=== PATIENT | male | born 1990 | race Caucasian/White ===

== ENCOUNTER 2023-03-19 13:09 | Emergency (ER) | payer OTHER, SELFPAY ==
[2023-03-19 13:14] VITALS: BP 138/96; PULSE 81; RESP 16; TEMP 36.9; O2SAT 98
--- NOTE | 2023-03-19 13:39 | W.ED.GENAD ---
Discharge Plan Disposition Patient Disposition: Home Condition: Stable Discharge Details Clinical Impression: Cellulitis of forearm, right Primary Care Provider: Kary Conde ED Provider: César Anne Home Meds and New Rx's Prescriptions: New cephalexin 500 mg tablet 500 mg PO QID Qty: 20 0RF Discharge Instructions Instructions: Cellulitis (ED) Additional Instructions: Please take full course of antibiotic as prescribed. Please contact your primary care physician to arrange follow-up. Return to the ER immediately for any worsening or new concerning symptoms. Referrals: Kary Conde, AMA [Primary Care Provider] - Medical Decision Making 32-year-old male here with cellulitis of wound right arm. No signs of systemic illness. No prior history of or risk factors for MRSA. Plan to treat with Keflex. Tetanus booster was given 2018. HPI General Mode of arrival: ambulatory. Date/Time Provider Initiated Documentation: 03/19/23 13:35. Limitations to Documentation: no limitations. Information obtained by: patient. HPI Narrative: 32-year-old male here with concern for infection of his right forearm. Patient notes he scraped the scab off of his right forearm. He is unsure as to etiology of original wound but may have been bug bite. He states this morning he noticed forearm seem swollen and tight with redness around the wound. No associated fever. No prior skin infections. Related Data Home Medications Medication Instructions Recorded Confirmed cephalexin 500 mg tablet 500 mg PO QID #20 tabs 03/19/23 Previous Rx's Medication Instructions Recorded cephalexin 500 mg tablet 500 mg PO QID #20 tabs 03/19/23 Allergies Allergy/AdvReac Type Severity Reaction Status Date / Time No Known Allergies Allergy Verified 03/19/23 13:16 General Stated Complaint: Cellulitis NESSA: 4 Review of Systems Constitutional Constitutional: Denies fever(s) Integumentary/Breasts Skin/Breast: Reports as per HPI PFSH All Active Problems (Updated 03/19/23 @ 13:44 by César Anne MD) Cellulitis of forearm, right (Acute) Surgical History S/P ORIF (open reduction internal fixation) fracture Right leg Family History Mother No problems noted. Father No problems noted. Sister No problems noted. Sister No problems noted. Brother No problems noted. Maternal Grandfather No problems noted. Maternal Grandmother No problems noted. Paternal Grandfather No problems noted. Paternal Grandmother No problems noted. Social History Smoking/Tobacco Use Status: Never Second Hand Exposure: Yes Smoking risk assessment performed?: Yes Alcohol Intake: current Alcohol Intake frequency: a few times a week Alcohol type: hard liquor Drug use: Never Household members: significant other Communication Needs: None Do you need help understanding health information?: Never Pets and animals: Yes Pets and animals: cat(s) and dog(s) Sexually active: Yes Do you think of yourself as: straight/heterosexual Current gender identity: male and decline to answer What is your relationship status?: living with partner How often do you talk on the phone with friends or family?: three or more times per week How often do you get together with friends or relatives?: twice per week Do you belong to any clubs or organized social groups?: yes Panel score (0-1 are the most socially isolated patients): 3 What type of physical activity do you participate in: walking Duration: > 90 minutes/day Frequency: 5-6 times per week Agree to transfusion: No Seatbelt use: never Helmet use: No Drive intox or ride w/intox meals on wheels driver: No Exam Skin Rashes: rashes noted (see below) Other: Right anterior proximal forearm with erythema surrounding healing wound with clear yellow discharge from wound, no significant induration or fluctuance Course Vital Signs Vital signs: Vital Signs Temperature 36.9 C 03/19/23 13:14 Pulse 81 03/19/23 13:14 Respiratory Rate 16 03/19/23 13:14 Blood Pressure 138/96 H 03/19/23 13:14 Pulse Oximetry 98 03/19/23 13:14 Temperature 36.9 C 03/19/23 13:14 Temperature Source Skin 03/19/23 13:14 Pulse 81 03/19/23 13:14 Respiratory Rate 16 03/19/23 13:14 Blood Pressure 138/96 H 03/19/23 13:14 Blood Pressure Position Sitting 03/19/23 13:14 Pulse Oximetry 98 03/19/23 13:14 Oxygen Delivery Method Room Air 03/19/23 13:14 Oxygen Flow Rate 0 03/19/23 13:14 Pain Level 0 03/19/23 13:14
[2023-03-19] MEDS: Cephalexin 500 MG CAP PO (13:58)
== END 2023-03-19 14:03 | disposition home or self-care (01) ==
PROVIDERS: Emergency Provider Student in an Organized Health Care Education/Training Program; PCP Nurse Practitioner Family
DX: L03.113 Cellulitis of right upper limb (principal)
CPT/HCPCS: 99283